=== PATIENT | male | born 1970 | race Caucasian/White ===

== ENCOUNTER 2016-12-30 12:58 | Emergency (ER) | payer BC ==
[~2016-12-30] VITALS: Ht 185.4 cm; Wt 96.2 kg
[2016-12-30 13:04] VITALS: Ht 185.4 cm; Wt 96.2 kg
[2016-12-30] MEDS ORDERED: SODIUM CHLORIDE 0.9% 1000ML 1,000 ML IV STA (13:16)
[2016-12-30] MEDS ORDERED: URC10 PO (13:39)
[2016-12-30] MEDS ORDERED: NADO40TA PO (13:39)
[2016-12-30] MEDS ORDERED: BTLAI200 INFIL (13:39)
[2016-12-30] MEDS ORDERED: TAMS0.4C38 PO (13:39)
[2016-12-30] MEDS ORDERED: ALLO300T2 PO (13:39)
[2016-12-30] MEDS ORDERED: CLON0.5T3 PO (13:39)
[2016-12-30] MEDS ORDERED: ENTI300 IV (13:39)
[2016-12-30] MEDS ORDERED: MONT1TAB5 PO (13:39)
[2016-12-30] MEDS ORDERED: TRAM-10 PO (13:39)
[2016-12-30] MEDS ORDERED: HYDR-3126 PO (13:39)
--- NOTE | 2016-12-30 13:39 | EMERGENCY ROOM VISIT NOTE ---
History First contact with patient: 13:08 Chief Complaint: RESPIRATORY PROBLEMS Stated Complaint: UPPER RESP., SINUS, LOWER BACK PAIN Nursing Triage Summary: pt reports I have sinus pain , I may have kidney stones , I have crohns , the last couple of days I have had exertional sob and my hear feels like it beats really fast , I also so feel supper exhausted all the time History of Present Illness The patient is a 46 year old male who presents to the Emergency Room with several complaints. The patient states first, he has a history of kidney stones. The patient states a proximally 1 week ago, he began experiencing right flank pain. The pain is the same as he has had with previous kidney stones. The patient is under the care of a urologist in [place], where he is from. The patient states the right flank pain has been worse for the past 3 days. He last had a procedure with his urologist in May. The patient states he has been experiencing occasional burning with urination, blood with urination a few days ago, and some dark urine. The patient has been taking his regularly prescribed tramadol, which does help with the pain. The patient does report abdominal pain, but states this is the same as the pain he experiences with his Crohn's disease. The patient states he is in the middle of a Crohn's flare-up. Secondly, the patient complains of heaviness in his chest associated with shortness of breath over the past "few days". The patient states he has noticed the symptoms while exerting himself, but only while walking up steps. 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 He states he has been able to walk up approximately one half a flight of steps, and needing to stop and rest it for a few seconds in order to continue walking up the rest of the stairs. The patient states when he experiences the heaviness in his chest as well as difficulty breathing, he also experiences a lightheadedness, and reports flashing lights in his eyes. The patient states after resting, although if the symptoms improve and he feels back to normal. The patient denies any cardiac history or family history including previous heart attacks history of bleeding or clotting disorder. The patient does have a history of hypertension, which is controlled on his current medication. He does admit to smoking cigarettes currently. The patient states he is currently under the care of an ENT doctor, who recently prescribed him prednisone, a nasal spray, and "another medication". The patient began all of these medications last week, prior to the symptoms starting. The patient does report diarrhea, but states this is similar to his Crohn's disease. He is currently working with his globe tester regarding this complaint. The patient does report extreme fatigue, and states he has been unable to tolerate driving long distances, and has been having to take naps throughout the day in order to get himself through the day. The patient denies significant joint pains. He denies any coughing, sore throat, or earache. The patient denies significant muscle weakness or joint pains. He denies any swelling in the extremities. With the exception of driving from [place] to [place] for the [place], he has not recently traveled. The patient states the symptoms all began prior to his truck down to [place]. Review of Systems A complete 10 point review of systems was reviewed with the patient with pertinent positives and negatives as per history of present illness. All else were negative. Past Medical/Surgical History Crohn's disease Kidney stones Hypertension Gout Rhinitis Anxiety Hypokalemia Social History Smoking Status: Current Every Day Smoker Smokeless Tobacco Use: No Alcohol Use: occasionally Drug Use: none Marital Status: Housing Status: lives with family Occupation Status: employed Current/Historical Medications Scheduled Allopurinol (Zyloprim), 300 MG PO DAILY Botulinum Toxin Type A (Botox), 1 DOSE INFIL [id number] Clonazepam (Klonopin), 0.5 MG PO QPM Hydroxyzine Hcl (Atarax), 50 MG PO QPM Montelukast Sodium (Montelukast Sodium), 10 MG PO QPM Nadolol (Corgard), 40 MG PO DAILY Potassium Citrate (Potassium Citrate), 15 MEQ PO QID Tamsulosin Hcl (Flomax), 0.4 MG PO HS Tramadol (Ultram), 50 MG PO BID Vedolizumab (Entyvio), 1 DOSE IV [id number] Physical Exam Vital Signs Date Time Temp Pulse Resp B/P (MAP) Pulse Ox O2 Delivery O2 Flow Rate FiO2 12/30/16 13:40 80 12/30/16 13:04 36.6 96 18 147/104 98 Room Air Physical Exam VITALS: Vitals are noted on the nurse's note and reviewed by myself. Vital signs stable. GENERAL: This is a 46-year-old white male, in no acute distress, nondiaphoretic , well-developed well-nourished. SKIN: The skin was without rashes, erythema, edema, or bruising. There is no tenting of the skin. Capillary reflex less than 2 seconds. HEAD: Normocephalic atraumatic. EARS: External auditory canals clear, tympanic membranes pearly cronin without erythema or effusion bilaterally. EYES: Pupils equal round and reactive to light and accommodation. Conjunctivae without injection, sclerae without icterus. Extraocular movements intact. NOSE: Patent, turbinates without inflammation or discharge. No sinus tenderness. MOUTH: Mucous membranes moist. Tonsils are not enlarged. Pharynx without erythema or exudate. Uvula midline. Airway patent. Tongue does not deviate. NECK: Supple without nuchal rigidity. No lymphadenopathy. No thyromegaly. Cervical spine is nontender. No JVD. HEART: Regular rate and rhythm without murmurs gallops or rubs. LUNGS: Clear to auscultation bilaterally without wheezes, rales or rhonchi. No dullness to percussion. No retractions or accessory muscle use. ABDOMEN: Positive bowel sounds x 4. Normal tympanic percussion. Tenderness noted throughout on palpation. The patient states this is normal with his history of Crohn's disease. Soft, without masses or organomegaly. Durand sign negative. No guarding or rebound tenderness. No CVA tenderness. MUSCULOSKELETAL: No muscle atrophy, erythema, or edema noted. Specifically, no pretibial edema. There is no edema or redness in either feet or ankles. Full range of motion without joint tenderness in all extremities. No tenderness to palpation. Normal gait. Strength 5/5 throughout. NEURO: Patient was alert and oriented to person place and time. Normal sensation to light and sharp touch. Deep tendon reflexes 2+ throughout. No focal neurological deficits. Medical Decision & Procedures ER Provider Diagnostic Interpretation: LABS: CBC was without leukocytosis, anemia, thrombocytopenia. CMP showed normal electrolytes, blood glucose levels, renal and hepatic function. Troponin 2 negative. Negative lipase. Negative CK-MB. D-dimer was positive. A CTA of the chest was ordered. CTA Chest/PE Protocol: FINDINGS: No pulmonary emboli are identified. There is no evidence of thoracic aortic dissection. Size of the heart is at the upper limits of normal. There is no pericardial effusion. There are no enlarged thoracic lymph nodes. There are no areas of consolidation to suggest pneumonia. Groundglass opacities suggest atelectasis. A 1.8 cm sclerotic left ninth rib lesion favors a bone island. The abdomen and pelvis will be reported separately. However, gallstones and bilateral renal calculi are noted. IMPRESSION: 1. No pulmonary emboli identified. 2. No acute intrathoracic findings. 3. Cholelithiasis and bilateral nephrolithiasis. The abdomen and pelvis will be reported separately. CT Abdomen/Pelvis without IV contrast: FINDINGS: The chest will be reported separately. There are gallstones within the gallbladder. No pericholecystic infiltration is present. Unenhanced images of the liver, spleen, adrenal glands and pancreas are normal. Numerous bilateral renal calculi measure up to 7 mm. There are no ureteral calculi and there is no hydronephrosis or hydroureter. The patient is status post ileocecectomy. There is no evidence for a bowel obstruction. Note is made of mild sigmoid colon wall thickening. There may be mild wall thickening and hyperemia of the hepatic flexure as well. There is no free air or abscess. No fistula is identified on this unenhanced CT. No suspicious skeletal lesions are identified. There is no lymphadenopathy. No perianal/perirectal abscess is identified on this unenhanced CT. IMPRESSION: 1. Bilateral nephrolithiasis. No ureteral calculi or hydronephrosis. 2. Cholelithiasis. No CT evidence of acute cholecystitis. 3. Mild multifocal colonic wall thickening, most evident within the sigmoid colon. Given the clinical history, the findings may reflect active Crohn's colitis. Infectious colitis could appear similar. No abscess. No bowel obstruction status post ileocecectomy. CXR: FINDINGS: The lung volumes are normal. No consolidation is identified. Pulmonary vascularity is normal. Cardiomediastinal silhouette is normal. No pneumothorax or pleural effusion is present. IMPRESSION: No acute cardiopulmonary findings. Laboratory Results 12/30/16 13:24 Red Blood Count 5.00, Mean Corpuscular Volume 87.6, Mean Corpuscular Hemoglobin 29.4, Mean Corpuscular Hemoglobin Concent 33.6, Mean Platelet Volume 8.9, Neutrophils (%) (Auto) 62.7, Lymphocytes (%) (Auto) 26.6, Monocytes (%) (Auto) 8.9, Eosinophils (%) (Auto) 1.3, Basophils (%) (Auto) 0.2, Neutrophils # (Auto) 5.77, Lymphocytes # (Auto) 2.45, Monocytes # (Auto) 0.82, Eosinophils # (Auto) 0.12, Basophils # (Auto) 0.02 12/30/16 13:24 Test 12/30/16 13:16 12/30/16 13:24 12/30/16 13:30 12/30/16 14:51 Creatine Kinase MB Ratio (0-3.0) White Blood Count 9.21 K/uL (4.8-10.8) Red Blood Count 5.00 M/uL (4.7-6.1) Hemoglobin 14.7 g/dL (14.0-18.0) Hematocrit 43.8 % (42-52) Mean Corpuscular Volume 87.6 fL (80-100) Mean Corpuscular Hemoglobin 29.4 pg (25-34) Mean Corpuscular Hemoglobin Concent 33.6 g/dl (32-36) Platelet Count 284 K/uL (130-400) Mean Platelet Volume 8.9 fL (7.4-10.4) Neutrophils (%) (Auto) 62.7 % Lymphocytes (%) (Auto) 26.6 % Monocytes (%) (Auto) 8.9 % Eosinophils (%) (Auto) 1.3 % Basophils (%) (Auto) 0.2 % Neutrophils # (Auto) 5.77 K/uL (1.4-6.5) Lymphocytes # (Auto) 2.45 K/uL (1.2-3.4) Monocytes # (Auto) 0.82 K/uL (0.11-0.59) Eosinophils # (Auto) 0.12 K/uL (0-0.5) Basophils # (Auto) 0.02 K/uL (0-0.2) RDW Standard Deviation 44.3 fL (36.4-46.3) RDW Coefficient of Variation 13.8 % (11.5-14.5) Immature Granulocyte % (Auto) 0.3 % Immature Granulocyte # (Auto) 0.03 K/uL (0.00-0.02) Prothrombin Time 10.0 SECONDS (9.0-12.0) Prothromb Time International Ratio 0.9 (0.9-1.1) Activated Partial Thromboplast Time 27.8 SECONDS (21.0-31.0) Partial Thromboplastin Ratio 1.1 D-Dimer 810 ug/L FEU (0-500) Anion Gap 7.0 mmol/L (3-11) Est Creatinine Clear Calc Drug Dose 100.4 ml/min Estimated GFR () 91.5 Estimated GFR (Non- 79.0 BUN/Creatinine Ratio 15.3 (10-20) Calcium Level 9.2 mg/dl (8.5-10.1) Total Bilirubin 0.4 mg/dl (0.2-1) Aspartate Amino Transf (AST/SGOT) 23 U/L (15-37) Alanine Aminotransferase (ALT/SGPT) 30 U/L (12-78) Alkaline Phosphatase 86 U/L (45-117) Creatine Kinase MB < 0.5 ng/ml (0.5-3.6) Pro-B-Type Natriuretic Peptide 30 pg/ml (0-450) Total Protein 7.4 gm/dl (6.4-8.2) Albumin 3.8 gm/dl (3.4-5.0) Globulin 3.6 gm/dl (2.5-4.0) Albumin/Globulin Ratio 1.1 (0.9-2) Lipase 108 U/L (73-393) Thyroid Stimulating Hormone (TSH) 0.855 uIu/ml (0.300-4.500) Lyme Disease IgG Antibody NEG (NEG) Lyme Disease IgM Antibody NEG (NEG) Urine Color YELLOW Urine Appearance CLEAR (CLEAR) Urine pH 7.5 (4.5-7.5) Urine Specific [place] 1.022 (1.000-1.030) Urine Protein NEG (NEG) Urine Glucose (UA) NEG (NEG) Urine Ketones NEG (NEG) Urine Occult Blood NEG (NEG) Urine Nitrite NEG (NEG) Urine Bilirubin NEG (NEG) Urine Urobilinogen NEG (NEG) Urine Leukocyte Esterase NEG (NEG) Test 12/30/16 15:35 Bedside Troponin I < 0.030 ng/ml (0-0.045) Medications Administered Medications (Trade) Dose Ordered Sig/Cristhian Route Start Time Stop Time Status Last Admin Dose Admin Sodium Chloride 1,000 ml @ 999 mls/hr Q1H1M STAT IV 12/30/16 13:16 12/30/16 14:16 DC 12/30/16 13:36 999 MLS/HR ECG Indication: abdominal pain, SOB/dyspnea Rate (beats per minute): 81 Rhythm: normal sinus Findings: no acute ischemic change, no ectopy Comparison ECG Date: no prior available ED Course The patient was seen and evaluated as above. Labs, EKG, radiology studies ordered and reviewed by myself. The patient was given 1 L bolus normal saline solution. All results were reviewed with the patient at bedside. Did discuss the case with Dr. Mario, and he agrees that the patient can be sent home and advised to follow up outpatient for ongoing cardiac testing. I discussed this with the patient. He was discharged home in good condition. Medical Decision The patient presented today with various complaints including exertional chest pain and dyspnea, increasing fatigue, and right flank pain with a history of nephrolithiasis. The patient states his flank pain is the same as previous pain with previous kidney stones. The patient's exertional chest pain is new, and he denies any cardiac history or family history of cardiac disease. Based on his workup, I suspect his symptoms may be related to a renal colic from the multiple kidney stones, radiating pain related to his Crohn's disease, and/or angina. I strongly encouraged the patient to follow up outpatient for a further cardiac workup. Differential diagnosis includes: Acute AL, coronary artery disease, angina, heart failure, pulmonary embolism, pneumothorax, pneumonia, pleural effusion, nephrolithiasis, ureteral calculus, renal colic, Crohn's disease, bowel obstruction, malignancy, and others. Medication Reconcilliation Current Medication List: was personally reviewed by me Blood Pressure Screening Patient's blood pressure: Elevated blood pressure Blood pressure disposition: Elevated BP felt to be situational, Referred to PCP Impression Primary Impression: Dyspnea on exertion Additional Impressions: Chest tightness or pressure Nephrolithiasis Crohns disease Departure Information Dispostion Home / Self-Care Condition GOOD Referrals No Doctor, Assigned (PCP) Patient Instructions ED Chest Pain Atypical Unkn Cause, ED Dyspnea Shortness of Breath, ED Inflam Bowel Disease Crohn, ED Stone Kidney Undescended No Sx, My [facility] Additional Instructions He was seen in the emergency department today for several complaints. We did note kidney stones in both of your kidneys, however none of them have descended into the ureters. You were also seen for chest pain. Chest pain was worked up in the emergency department with no acute findings at this time. Because the D- dimer was positive, we did perform a CT scan of your chest which did rule out pulmonary embolism. We did also perform lab work to rule out Lyme disease as the cause of your worsening fatigue. He should not perform any strenuous physical activity until you have been seen by cardiology. You should consult with your local box icer in [place]. Begin taking 81 mg of aspirin daily regarding your chest pain. You may use your chronic pain medication for worsening symptoms. Please follow up with urology regarding the kidney stones. Please follow up with your gastrointestinal physician regarding further follow- up and treatment for your Crohn's disease. Please drink plenty of fluids and follow your Crohn's disease diet. If you experience worsening chest pain, difficulty breathing, sweating, fever, chills, worsening fatigue, you should be seen in the emergency department for further evaluation. Please follow-up with your primary care provider in [place] regarding the workup which was performed today in the emergency department. Problem Qualifiers Additional Impressions: Crohns disease Gastrointestinal tract location: unspecified location Digestive disease complication type: without complication Qualified Codes: K50.90 - Crohn's disease, unspecified, without complications
[2016-12-30 13:45] LABS: BASO % 0.2 %; BASO ABS # 0.02 K/uL (0-0.2); COMPLETE YES; EOS % 1.3 %; HEMATOCRIT 43.8 % (42-52); IG% 0.3 %; LYMPH % 26.6 %; LYMPH ABS # 2.45 K/uL (1.2-3.4); MEAN CELL VOLUME 87.6 fL (80-100); MEAN CORPUSCULAR HEMOGLOBIN 29.4 pg (25-34); MEAN CORPUSCULAR HGB CONC 33.6 g/dl (32-36); MEAN PLATELET VOLUME 8.9 fL (7.4-10.4); MONO % 8.9 %; NEUT % 62.7 %; PLATELET COUNT 284 K/uL (130-400); WHITE BLOOD COUNT 9.21 K/uL (4.8-10.8)
[2016-12-30 13:51] LABS: URINE APPEARANCE CLEAR (CLEAR); URINE BILIRUBIN NEG (NEG); URINE COLOR YELLOW; URINE NITRITE NEG (NEG); URINE PH 7.5 (4.5-7.5); URINE SPECIFIC GRAVITY 1.022 (1.000-1.030); UROBILINOGEN NEG (NEG); ZZUR CULT IF INDIC CLEAN CATCH NO
[2016-12-30 13:53] LABS: MANUAL MICROSCOPIC REQUIRED? NO; REVIEW REQ? NO
[2016-12-30 13:57] LABS: INR 0.9 (0.9-1.1); PARTIAL THROMBOPLASTIN RATIO 1.1
--- NOTE | 2016-12-30 13:57 | DIAGNOSTIC IMAGING REPORT ---
CHEST 2 VIEWS ROUTINE CLINICAL HISTORY: Dyspnea on exertion. COMPARISON STUDY: No previous studies for comparison. FINDINGS: The lung volumes are normal. No consolidation is identified. Pulmonary vascularity is normal. Cardiomediastinal silhouette is normal. No pneumothorax or pleural effusion is present. IMPRESSION: No acute cardiopulmonary findings. Electronically signed by: Jonnie Resendiz M.D. 12/30/2016 1:56 PM Dictated Date/Time: 12/30/2016 1:55 PM
[2016-12-30 14:02] LABS: ALT/SGPT 30 U/L (12-78); BLOOD UREA NITROGEN 17 mg/dl (7-18); BUN/CREATININE RATIO 15.3 (10-20); CALCIUM 9.2 mg/dl (8.5-10.1); CARBON DIOXIDE 28 mmol/L (21-32); CHLORIDE 107 mmol/L (98-107); GLUCOSE 87 mg/dl (70-99); POTASSIUM 3.8 mmol/L (3.5-5.1); SODIUM 142 mmol/L (136-145)
[2016-12-30 14:12] LABS: ALB/GLOB RATIO 1.1 (0.9-2); ALKALINE PHOSPHATASE 86 U/L (45-117); AST/SGOT 23 U/L (15-37); THYROID STIMULATING HORMONE 0.855 uIu/ml (0.300-4.500)
[2016-12-30] MEDS ORDERED: OPTIRAY 320 IV PRN (14:30)
[2016-12-30 14:48] LABS: LYME DISEASE AB IGG NEG (NEG); LYME DISEASE AB IGM NEG (NEG)
--- NOTE | 2016-12-30 14:56 | DIAGNOSTIC IMAGING REPORT ---
CT ANGIOGRAPHY OF THE CHEST, PULMONARY EMBOLUS PROTOCOL CLINICAL HISTORY: Dyspnea on exertion. Elevated d-dimer. COMPARISON STUDY: Chest radiograph performed earlier today. TECHNIQUE: Following IV administration of 95 mL of Optiray-320, helical axial images of the chest were obtained utilizing the pulmonary embolus protocol. Maximal intensity projections and sagittal and coronal reformats were viewed on an independent 3D workstation. IV contrast was administered without complication. A dose lowering technique was utilized adhering to the principles of ALARA. CT DOSE: 1563.45 mGy.cm FINDINGS: No pulmonary emboli are identified. There is no evidence of thoracic aortic dissection. Size of the heart is at the upper limits of normal. There is no pericardial effusion. There are no enlarged thoracic lymph nodes. There are no areas of consolidation to suggest pneumonia. Groundglass opacities suggest atelectasis. A 1.8 cm sclerotic left ninth rib lesion favors a bone island. The abdomen and pelvis will be reported separately. However, gallstones and bilateral renal calculi are noted. IMPRESSION: 1. No pulmonary emboli identified. 2. No acute intrathoracic findings. 3. Cholelithiasis and bilateral nephrolithiasis. The abdomen and pelvis will be reported separately. Electronically signed by: Jonnie Resendiz M.D. 12/30/2016 2:55 PM Dictated Date/Time: 12/30/2016 2:48 PM
--- NOTE | 2016-12-30 15:08 | DIAGNOSTIC IMAGING REPORT ---
CT OF THE ABDOMEN AND PELVIS WITHOUT CONTRAST, STONE PROTOCOL CLINICAL HISTORY: Right flank pain. History of Crohn's. COMPARISON STUDY: None. TECHNIQUE: Helical axial images of the abdomen and pelvis were obtained without IV or oral contrast according to renal stone protocol. A dose lowering technique was utilized adhering to the principles of ALARA. FINDINGS: The chest will be reported separately. There are gallstones within the gallbladder. No pericholecystic infiltration is present. Unenhanced images of the liver, spleen, adrenal glands and pancreas are normal. Numerous bilateral renal calculi measure up to 7 mm. There are no ureteral calculi and there is no hydronephrosis or hydroureter. The patient is status post ileocecectomy. There is no evidence for a bowel obstruction. Note is made of mild sigmoid colon wall thickening. There may be mild wall thickening and hyperemia of the hepatic flexure as well. There is no free air or abscess. No fistula is identified on this unenhanced CT. No suspicious skeletal lesions are identified. There is no lymphadenopathy. No perianal/perirectal abscess is identified on this unenhanced CT. IMPRESSION: 1. Bilateral nephrolithiasis. No ureteral calculi or hydronephrosis. 2. Cholelithiasis. No CT evidence of acute cholecystitis. 3. Mild multifocal colonic wall thickening, most evident within the sigmoid colon. Given the clinical history, the findings may reflect active Crohn's colitis. Infectious colitis could appear similar. No abscess. No bowel obstruction status post ileocecectomy. Electronically signed by: Jonnie Resendiz M.D. 12/30/2016 3:06 PM Dictated Date/Time: 12/30/2016 2:56 PM
[2016-12-30 16:38] VITALS: BP 137/91; PULSE 77; TEMP 36.6; O2SAT 98
== END 2016-12-30 16:39 | disposition home or self-care (01) ==
LOC: C.EDB 13:01 → C.EDC 16:39
DX: R06.09 Other forms of dyspnea (principal); R07.89 Other chest pain; N20.0 Calculus of kidney; K50.90 Crohn's disease, unspecified, without complications; R06.02 Shortness of breath; I10 Essential (primary) hypertension; F41.9 Anxiety disorder, unspecified; Z79.899 Other long term (current) drug therapy; Z87.442 Personal history of urinary calculi; Z87.898 Personal history of other specified conditions; F17.200 Nicotine dependence, unspecified, uncomplicated